=== PATIENT | male | born 2000 | race American Indian/Alaskan Native ===

== ENCOUNTER 2018-06-16 11:00 | Emergency (ER) | payer SELFPAY ==
[2018-06-16 12:40] LABS: Bilirubin,Urine NEG (Negative); Blood,Urine NEG (Negative); Color,Urine Yellow (Yellow); Mucus,Urine FEW /HPF; Protein,Urine <15 mg/dL mg/dL (Negative); RBC,Urine < 1.0 /HPF (0.0-6.0); Urobilinogen,Urine < 2.0 mg/dL (<2.0)
--- NOTE | 2018-06-16 14:25 | Emergency Department Report ---
ED Male HPI - General Chief complaint: Urogenital-Male Stated complaint: BLADDER PAIN Time Seen by Provider: 06/16/18 14:09 Source: patient Mode of arrival: Ambulatory Limitations: No Limitations - History of Present Illness Initial comments: This is a 17-year-old male patient who reports that he is having painful urination and low back pain at 6-10. Lower back pain is achy. Pain is intermittent. Denies any penile discharge. Denies any scrotal pain or swelling. Patient is concerned for STD and reported that he was treated for chlamydia 2 months ago. He is sexually active but says that he uses condom. Denies any fever or chills. Denies any abdominal pain. No medication taken prior to coming to the hospital. Pain is worse with urinating. No pain without urinating. Denies blood in his urine MD Complaint: penile discharge, dysuria Onset/Timin (pain is located to lower back) -: days(s) Radiation: none Severity scale (0 -10): 6 Quality: aching Consistency: intermittent Improves with: other (after urinating) Worsens with: urination dysuria, other (patient concern for STD and wants to be treated). denies: discharge, swelling, mass, rash, urinary retention, blood in urine, fever, nausea/vomiting, incontinence - Related Data Sexually active: Yes Allergies Allergy/AdvReac Type Severity Reaction Status Date / Time No Known Allergies Allergy Unverified 06/16/18 11:13 ED Review of Systems ROS: Stated complaint: BLADDER PAIN Other details as noted in HPI Constitutional: denies: chills, fever ENT: denies: throat pain Respiratory: denies: cough, shortness of breath, wheezing Cardiovascular: denies: chest pain, palpitations Gastrointestinal: denies: abdominal pain, nausea, vomiting Genitourinary: dysuria, discharge. denies: urgency, frequency, hematuria, testicular pain, testicular mass, other Musculoskeletal: back pain. denies: joint swelling, arthralgia Skin: denies: rash, lesions Neurological: denies: headache, weakness ED Past Medical Hx - Past Medical History Previous Medical History?: No - Surgical History Past Surgical History?: No - Family History Family history: no significant - Social History Smoking Status: Never Smoker Substance Use Type: None ED Physical Exam - General Limitations: No Limitations General appearance: alert, in no apparent distress - Head Head exam: Present: atraumatic, normocephalic, normal inspection - Eye Eye exam: Present: normal appearance, PERRL, EOMI Pupils: Present: normal accommodation - ENT ENT exam: Present: normal exam, normal orophraynx, mucous membranes dry, mucous membranes moist - Neck Neck exam: Present: normal inspection, tenderness, full ROM. Absent: lymphadenopathy - Respiratory Respiratory exam: Present: normal lung sounds bilaterally. Absent: respiratory distress, chest wall tenderness - Cardiovascular Cardiovascular Exam: Present: regular rate, normal rhythm, normal heart sounds. Absent: systolic murmur, diastolic murmur - GI/Abdominal GI/Abdominal exam: Present: soft, normal bowel sounds. Absent: distended, tenderness, guarding, rebound, rigid, organomegaly, mass - Extremities Exam Extremities exam: Present: normal inspection, full ROM, normal capillary refill. Absent: tenderness, pedal edema, joint swelling, calf tenderness - Back Exam Back exam: Present: normal inspection, full ROM, other (ambulates without any difficulties). Absent: tenderness, CVA tenderness (R), CVA tenderness (L), muscle spasm, paraspinal tenderness, vertebral tenderness, rash noted - Neurological Exam Neurological exam: Present: alert, oriented X3, normal gait - Psychiatric Psychiatric exam: Present: normal affect, normal mood - Skin Skin exam: Present: warm, dry, normal color. Absent: rash ED Course Vital Signs 06/16/18 11:10 Temperature 98.7 F Pulse Rate 64 Blood Pressure 117/69 O2 Sat by Pulse 98 Oximetry - Reevaluation(s) Reevaluation #1: 06/16/18 15:59 Patient wanted to be treated empirically for STD. Patient given azithromycin 1 g by mouth, Rocephin to just 50 mg IM to treat chlamydia and gonorrhea. He had no adverse reaction. ED Medical Decision Making - Lab Data Lab Results 06/16/18 Range/Units 12:03 Urine Color Yellow (Yellow) Urine Turbidity Clear (Clear) Urine pH 6.0 (5.0-7.0) Ur Specific Golf 1.024 (1.003-1.030) Urine Protein <15 mg/dl (Negative) mg/dL Urine Glucose (UA) Neg (Negative) mg/dL Urine Ketones Neg (Negative) mg/dL Urine Blood Neg (Negative) Urine Nitrite Neg (Negative) Urine Bilirubin Neg (Negative) Urine Urobilinogen < 2.0 (<2.0) mg/dL Ur Leukocyte Esterase Neg (Negative) Urine WBC (Auto) 0.0 (0.0-6.0) /HPF Urine RBC (Auto) < 1.0 (0.0-6.0) /HPF U Epithel Cells (Auto) < 1.0 (0-13.0) /HPF Urine Mucus Few /HPF - Medical Decision Making This is a 17-year-old male here reports that he is having burning with urination. He said he was treated for chlamydia 2 months ago. He still have in fact since that he use a condom and he is also requested to be treated for STD although he does not have any penile discharge. He denies any abdominal pain but report lower back pain and said he might have a bladder infection. He denies any fever or chills. Patient is here to be treated for STD. Assessment/plan 1: Dysuria-urinalysis is normal. Urethritis 2: Male concern for STD without any symptoms-chose to be treated empirically for gonorrhea and chlamydia. He was given Rocephin 200 mg IM for gonorrhea and a Zithromax 1 g by mouth for chlamydia without any adverse reaction. I instructed if his urinalysis results and that he needs to practice safe sex and let his partner know that he was treated for STD in emergency room and here she will need to go to the health department for STD check. I also informed him that he needs to follow up with [facility] or [facility] in 7-10 days for STD testing. He voiced understanding. I instructed him to refrain from having sex for 2 weeks until he gets his test results back from the health department over a very close to get his STD testing done and he voiced understanding. Patient discharged home in stable condition. Vital signs stable. Afebrile. Critical care attestation.: If time is entered above; I have spent that time in minutes in the direct care of this critically ill patient, excluding procedure time. ED Disposition Clinical Impression: Concern about STD in male without diagnosis, Urethritis, unspecified, Dysuria Disposition: [id number] TO HOME OR SELFCARE Is pt being admited?: No Does the pt Need Aspirin: No Condition: Stable Instructions: Nonspecific Urethritis in Men (ED), Safe Sex (ED), Sexually Transmitted Diseases (ED) Additional Instructions: Treated in emergency room today for gonorrhea and chlamydia. Follow-up at multiple referral given, choose one and half STD testing done in 7- 10 days. Refrain from having sexual activity for at least 2 weeks Referrals: [facility] [Outside] - 7-10 days [facility] [Outside] - 7-[facility] days [facility] [Outside[facility] - 7-10 days Forms: STI Treatment and Prevention, Work/School Release Form(ED)
[2018-06-16] MEDS ORDERED: ROCEPHIN IM ONE (15:44)
[2018-06-16] MEDS ORDERED: ZITHROMAX PO ONE (15:44)
[2018-06-16] MEDS ORDERED: XYLOCAINE 1% MPF 5 mL INFILTRATI ONE (15:44)
[2018-06-16 16:23] VITALS: BP 124/73
== END 2018-06-16 16:23 | disposition home or self-care (01) ==
LOC: ED 11:00
DX: A64 Unspecified sexually transmitted disease (principal); N34.2 Other urethritis; R30.0 Dysuria
CPT/HCPCS: 81001; 96372; 99283; J0696